=== PATIENT | female | born 1995 | race Two or more races ===

== ENCOUNTER 2018-10-08 18:27 | Inpatient (IN) | payer OTHER ==
[~2018-10-08] VITALS: Ht 160 cm; Wt 2.3 kg
[2018-10-08] MEDS ORDERED: PRENATAL TABLE1 EAC1 (20:22)
[2018-10-08] MEDS ORDERED: VALTREX1000 MG PO (20:23)
== END 2018-10-12 13:39 | disposition home or self-care (01) | DRG 788 ==
LOC: LDR 18:27 → OB/GYN 18:27 → SURG-SUITE 10-09 20:01 → OB/GYN 10-10 17:57
PROVIDERS: ADMIT Obstetrics & Gynecology
PROC: 10907ZC Drainage of Amniotic Fluid, Therapeutic from Products of Conception, Via Natural or Artificial Opening (ICD-10-PCS; 2018-10-09)
PROC: 3E0P7VZ Introduction of Hormone into Female Reproductive, Via Natural or Artificial Opening (ICD-10-PCS; 2018-10-09)
PROC: 3E033VJ Introduction of Other Hormone into Peripheral Vein, Percutaneous Approach (ICD-10-PCS; 2018-10-09)
PROC: 4A1HXCZ Monitoring of Products of Conception, Cardiac Rate, External Approach (ICD-10-PCS; 2018-10-09)
PROC: 10D00Z1 Extraction of Products of Conception, Low, Open Approach (ICD-10-PCS; principal; 2018-10-09 18:00)
DX: O82 Encounter for cesarean delivery without indication (principal); O76 Abnormality in fetal heart rate and rhythm complicating labor and delivery; Z3A.38 38 weeks gestation of pregnancy; Z37.0 Single live birth